=== PATIENT | female | born 1940 | race Caucasian/White ===

== ENCOUNTER → 2022-04-30 13:48 | Outpatient (BNVA) | payer MEDICARE, SELFPAY | PROVIDERS: PCP Internal Medicine; Visit Provider Student in an Organized Health Care Education/Training Program | DX: M25.541 Pain in joints of right hand (principal); Z11.59 Encounter for screening for other viral diseases; N39.0 Urinary tract infection, site not specified; M25.542 Pain in joints of left hand | CPT/HCPCS: 99202 ==

== ENCOUNTER 2022-04-30 15:02 | Outpatient (REF) | payer MEDICARE, SELFPAY ==
[2022-04-30 15:37] LABS: MANUAL DIFF FLAG NO
[2022-04-30 16:18] LABS: Basophils Percent Auto 0.5 % (0-2); Eosinophils Absolute Auto 0.2 X10*3/uL (0.0-0.4); Eosinophils Percent Auto 2.3 % (0-4); Hematocrit 38.9 % (37.0-47.0); Hemoglobin 12.2 g/dl (12.0-16.0); Imm Gran Abs Auto 0.03 X10*3/uL (0.00-0.03); Imm Gran Pct Auto 0.3 % (0.0-0.4); Lymphocytes Absolute Auto 1.4 X10*3/uL (1.2-4.9); Lymphocytes Percent Auto 16.3 % (20-40); Mean Corpuscular HGB Conc 31.4 g/dl (31.0-35.0); Mean Corpuscular Volume 89.4 fL (80.0-98.0); Mean Platelet Volume 12.1 fL (9.4-12.3); Monocytes Absolute Auto 0.6 X10*3/uL (0.1-1.2); Monocytes Percent Auto 7.2 % (2-11); Neutrophils Absolute Auto 6.5 x10*3/uL (2.0-8.3); Neutrophils Percent Auto 73.4 % (45-73); Platelet Count 302 X10*3/uL (160-400); Red Blood Count 4.35 X10*6/uL (4.20-5.50); Red Cell Distribution Width 15.2 % (11.0-16.0); White Blood Count 8.8 X10*3/uL (4.8-10.8)
[2022-04-30 16:49] LABS: Alanine Aminotransferase 15 U/L (0-31); Albumin Level 4.1 g/dL (3.5-5.0); Alkaline Phosphatase 89 U/L (39-117); Anion Gap 15 (12-20); Aspartate Amino Transferase 18 U/L (5-31); Bilirubin Total 0.6 mg/dL (0.0-1.0); Blood Urea Nitrogen 21 mg/dL (9-16); C Reactive Protein 2.21 mg/dL (< or = 0.50); Calcium 9.4 mg/dL (8.4-10.2); Carbon Dioxide 27 mmol/L (22-29); Chloride 101 mmol/L (96-108); Estimated Glomerular Filt Rate 54; Glucose Random 96 mg/dL (60-115); Potassium 4.2 mmol/L (3.3-5.1); Rheumatoid Factor < 15.0 IU/mL (<15.0); Sodium 139 mmol/L (135-145); Total Protein 7.1 g/dL (6.5-8.0); Uric Acid 5.2 mg/dL (2.4-5.7)
[2022-04-30 17:01] LABS: Erythrocyte Sedimentation Rate 30 MM/HR (0-20)
[2022-05-01 08:11] LABS: HBS Num1 0.89 mIU/mL (0-7.99); HBc Num1 0.15 S/CO (0.00-0.79); Hepatitis B Core Antibody Nonreactive (Nonreactive); Hepatitis B Surface Antigen Negative (Negative); ~HepC Num1 0.09 S/CO (0.00-0.79); ~Hepatitis B Surface Antibody NONREACTIVE (Nonreactive); ~Hepatitis C Antibody Nonreactive (Nonreactive)
[2022-05-02 08:14] LABS: Hepatitis A Antibody IgM 0.18 Index (0-0.79); ~Hepatitis A Antibody IgM Nonreactive (Nonreactive)
[2022-05-02 08:51] LABS: Lyme Abs Screen <0.90 index
[2022-05-02 11:27] LABS: Cyclic Citrullinated Peptide <16 UNITS
[2022-05-02 14:47] LABS: IgA 509 mg/dL (70-320); IgG 838 mg/dL (600-1540); IgM 137 mg/dL (50-300)
[2022-05-02 16:47] LABS: Complement C3 129 mg/dL (83-193)
[2022-05-03 10:21] LABS: Anti-Centromere B Antibodies <1.0 NEG AI (<1.0 NEG)
[2022-05-03 10:32] LABS: Anti DNA DS Antibody 7 IU/mL; Antibody to SS-A Antigen <1.0 NEG AI (<1.0 NEG); Antibody to SS-B Antigen <1.0 NEG AI (<1.0 NEG); SM/Ribonucleoprotein Ab <1.0 NEG AI (<1.0 NEG); Scleroderma 70 Antibody <1.0 NEG AI (<1.0 NEG); Smith Protein <1.0 NEG AI (<1.0 NEG)
[2022-05-03 13:36] LABS: HLA B27 Negative (Negative)
[2022-05-04 21:17] LABS: Prot Elec - Albumin 3.7 g/dL (3.8-4.8); Prot Elec - Alpha1 0.4 g/dL (0.2-0.3); Prot Elec - Beta 1 0.5 g/dL (0.4-0.6); Prot Elec - Beta 2 0.4 g/dL (0.2-0.5); Prot Elec - Gamma 0.8 g/dL (0.8-1.7); Prot Elec - Total Protein 6.8 g/dL (6.1-8.1)
[2022-05-06 11:52] LABS: Anti Nuclear Antibody Pattern Nuclear, Homogeneous; Anti Nuclear Antibody Screen POSITIVE (NEGATIVE); Anti Nuclear Antibody Titer 1:40 titer
== END 2022-04-30 15:03 | disposition home or self-care (01) ==
LOC: HO.LAB 15:02
PROVIDERS: PCP Internal Medicine; Visit Provider Student in an Organized Health Care Education/Training Program
DX: Z11.59 Encounter for screening for other viral diseases (principal); M25.541 Pain in joints of right hand; Z72.89 Other problems related to lifestyle
CPT/HCPCS: 36415; 80053; 82784; 84165; 84550; 85025; 85652; 86038; 86039; 86140; 86160; 86200; 86225; 86235; 86334; 86431; 86617; 86618; 86704; 86706; 86709; 86803; 86812; 87340; 99202

== ENCOUNTER 2022-06-07 14:05 | Outpatient (REF) | payer MEDICARE, SELFPAY ==
[2022-06-07 14:51] LABS: Appearance Urine Clear; Color Urine Yellow; Glucose Urine UA Negative (Negative); Leukocyte Esterase Urine Negative (Negative); Nitrite Urine Negative (Negative); PH 5.5 (5.0-9.0); Specific Gravity - Urine 1.015 (1.005-1.025); UMIC TRIGGER UA YES; Urine Blood Small (1+) (Negative); Urine Ketones Negative (Negative); Urine Protein Negative (Neg-Trace)
[2022-06-07 15:09] LABS: Bacteria Urine None Seen (None Seen); Hyaline Casts Urine 0-2 /LPF (0-2); RBC Urine 0-2 /HPF (0-2); Squamous Epithelial Cell Urine 0-2 /HPF (0-2); WBC Urine 0-5 /HPF (0-5)
[2022-06-07 15:23] LABS: Creatinine Urine 64.11 mg/dL; Total Protein Urine Random < 7 mg/dL (<12)
[2022-06-07 16:35] LABS: CT PCR NOT DETECTED (Not Detect.); NG PCR NOT DETECTED (Not Detect.)
== END 2022-06-07 14:06 | disposition home or self-care (01) ==
LOC: HO.LAB 14:05
PROVIDERS: PCP Internal Medicine; Visit Provider Student in an Organized Health Care Education/Training Program
DX: M12.30 Palindromic rheumatism, unspecified site (principal); M25.541 Pain in joints of right hand; N39.0 Urinary tract infection, site not specified; Z79.899 Other long term (current) drug therapy
CPT/HCPCS: 81001; 84156; 87086; 87491; 87591; 99212

== ENCOUNTER 2023-03-18 14:27 | Outpatient (AMB) | payer MEDICARE, SELFPAY ==
--- NOTE | 2023-03-18 14:32 | MHC.OFFVIS ---
Intake Vital Signs 03/18/23 14:33 Height 5 ft 5 in Weight 161 lb 4 oz BMI 26.8 BP 132/62 Blood Pressure Location Lt brachial Position Sitting Pulse 56 Pulse Source Pulse Oximeter Pulse Oximetry (%) 98 Oxygen Delivery Method Room Air Intake Visit Reasons: COVERAGE ANALYST-S/P CVA-LVM Intake Note: Pt presents in office as a NPV s/p CVA Wellness Program Coordinator Required: No Allergies doxycycline Adverse Reaction (Intermediate, Verified 03/18/23 14:37) Nausea and Vomiting felodipine [From Plendil] Adverse Reaction (Intermediate, Verified 03/18/23 14:37) Headache Iodinated Contrast Media Adverse Reaction (Intermediate, Verified 03/18/23 14:37) Swelling, Edema sulfamethoxazole [From Bactrim] Adverse Reaction (Intermediate, Verified 03/18/23 14:37) Swelling, Edema trimethoprim [From Bactrim] Adverse Reaction (Intermediate, Verified 03/18/23 14:37) Swelling, Edema Medication List - Last Reconciled 03/18/23 by Anisha Jung MD apixaban (Eliquis) 5 mg PO BID bimatoprost 0.01% (Lumigan) 1 drp ophthalmic (eye) DAILY flecainide 100 mg PO BID hydrochlorothiazide 12.5 mg PO DAILY irbesartan 150 mg PO DAILY multivitamin 1 tab PO DAILY propranolol 10 mg PO BID Saccharomyces boulardii (Digest Probiotic (S.boulardii)) 250 mg PO BID HPI HPI Comments History of Present Illness Details 82y/o female comes for neurological evaluation She was admitted at [facility] on 09/20/22 for a CVA. She presented with slurred speech and right UE weakness lasted less than 24 hrs..CT head was nonfocal .CTA did not show any large vessel stenosis MRI brain showed subacute left perirolandic parietal occipital lacunar infarcts.Chronic right temporal occipital infarct she has h/o Atrial fib and was on Coumadin In [facility] he was switched to eliquis and started on atorvastatin 40mg qd ECHO left ventricular EF 55-65% She recovered well she reports some numbness in her feet. It is mostly when she walks . No back pain [facility] Medical History (Updated 03/18/23 @ 15:13 by Anisha Jung MD) Colitis Combined hyperlipidemia CVA (cerebral vascular accident) Dyslipidemia HTN (hypertension) ANA MARIA on CPAP Paroxysmal A-fib Plantar fasciitis Trigeminal neuralgia Vertigo Surgical History H/O hemorrhoidectomy Hx of appendectomy Hx of section Hx of cholecystectomy S/P ablation of atrial fibrillation Family History Father Cancer Mother Murmur Cerebrovascular accident (CVA) Sister Cancer Social History Household Members: Spouse Alcohol intake: former Patient Tobacco Use Status: Former Tobacco user Use of substances other than those prescribed or required for medical reasons: No Current occupational status: retired 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, office secretary to the plant attendant Review of Systems Const Reports fatigue ENT Reports Normal hearing present Card Reports irregular heart rhythm Neuro Reports Normal hearing present and Reports memory loss Psych Reports memory loss Endo Reports fatigue Physical Exam Vital Signs: Last Vital Signs Pulse 56 03/18/23 14:33 BP 132/62 03/18/23 14:33 Pulse Ox 98 03/18/23 14:33 Oxygen Delivery Method Room Air 03/18/23 14:33 BMI result Body Mass Index 26.8 Const General: cooperative, healthy appearing and comfortable Nutritional Appearance: average body habitus Orientation/consciousness: patient oriented x3 Eyes Pupils: Equal, round and reactive pupils present Neuro Other: mild left facial UMN weakness( patient reports that it started many years ago) General: patient oriented x3, tone normal, moves all extremities and no focal motor deficits Cranial nerves: Yes Facial sensation intact/muscles of mastication intact, Yes Equal, round and reactive pupils present, Yes Bilaterally intact EOM present, Yes Nystagmus not present, Yes Normal facial strength present, Yes Midline tongue present, Yes Symmetric palate elevation present, Yes Normal hearing present and Yes Ability to bilaterally elevate shoulders present Cognition (Neuro): normal cognition Gait exam (Neuro): Antalgic gait present Motor exam (neuro): 5/5 motor strength present throughout and Normal motor muscle tone present throughout Deep tendon reflexes (DTR's): Right triceps reflex intensity grade: 2+, Left triceps reflex intensity grade: 1+, Rt Biceps (C5, C6): 2+, Left biceps reflex intensity grade: 1+, Right brachioradialis reflex intensity grade: 2+, Left brachioradialis reflex intensity grade: 1+, Right patellar reflex intensity grade: 2+ and Left patellar reflex intensity grade: 2+ Coordination: ntullk-sd-vory test normal Psych Appearance: grossly normal Speech and movement: Normal speech and movement present Assessment & Plan Assessment & Plan (1) CVA (cerebral vascular accident): Code(s): I63.9 - Cerebral infarction, unspecified Plan Patient has recovered well from her CVA. No residual. It is unclear why she is not on atorvastatin . she wants to discuss with her portrait painter before restarting continue CPAP. Compliance stressed continue f/u cardiology Continue Eliquis Risk factor reduction Coding Level of Care Code New Pt Level 4 (95161) Diagnoses CVA (cerebral vascular accident) I63.9
[2023-03-18 14:33] VITALS: BP 132/62; PULSE 56; O2SAT 98; BMI 26.8
== END 2023-03-18 15:18 | disposition home or self-care (01) ==
PROVIDERS: Visit Provider Psychiatry & Neurology Neurology
DX: I48.91 Unspecified atrial fibrillation (principal); Z86.73 Personal history of transient ischemic attack (TIA), and cerebral infarction without residual deficits
CPT/HCPCS: 99203

== ENCOUNTER → 2023-03-18 14:27 | Outpatient (BNVA) | payer MEDICARE, SELFPAY | PROVIDERS: Visit Provider Psychiatry & Neurology Neurology | DX: I63.81 Other cerebral infarction due to occlusion or stenosis of small artery (principal) | CPT/HCPCS: 99202 ==